=== PATIENT | male | born 1945 | race Caucasian/White ===

== ENCOUNTER 2019-12-11 15:04 | Inpatient (IN) | payer MEDICARE, OTHER ==
[~2019-12-11] VITALS: Ht 162.6 cm; Wt 67.1 kg
[2019-12-11] MEDS ORDERED: CHOL100045 PO (15:18)
[2019-12-11] MEDS ORDERED: BISA10SU11 RC (15:18)
[2019-12-11] MEDS ORDERED: ASCO-352 PO (15:18)
[2019-12-11] MEDS ORDERED: ACET-868 PO (15:18)
[2019-12-11] MEDS ORDERED: BUSP10TA3 PO (15:18)
[2019-12-11] MEDS ORDERED: ZOLP5TAB2 PO (15:18)
[2019-12-11] MEDS ORDERED: CALC500T13 PO (15:18)
[2019-12-11] MEDS ORDERED: LORA-259 PO (15:18)
[2019-12-11] MEDS ORDERED: NA P133E RC (15:18)
[2019-12-11] MEDS ORDERED: DOCU-141 PO (15:18)
[2019-12-11] MEDS ORDERED: ZINC220C6 PO (15:18)
[2019-12-11] MEDS ORDERED: SENN-261 PO (15:18)
[2019-12-11] MEDS ORDERED: ESCI10TA PO (15:18)
[2019-12-11] MEDS ORDERED: OMEG-88 PO (15:18)
[2019-12-11] MEDS ORDERED: QUERCETIN PO (15:19)
--- NOTE | 2019-12-11 15:47 | NUR ---
DONN ACEVEDO AT BEDSIDE FOR EKG
--- NOTE | 2019-12-11 15:50 | NUR ---
URINE SAMPLE COLLECTED AND SENT TO LAB
--- NOTE | 2019-12-11 15:54 | NUR ---
RAPID COVID SWAB DONE AND SENT TO LAB
--- NOTE | 2019-12-11 16:00 | NUR ---
HERBERTH HULL [phone]
[2019-12-11 16:16] LABS: BASOPHILS # (AUTO) 0.1 /CMM (0.0-0.2); BASOPHILS % (AUTO) 0.9 % (0.0-2.0); EOSINOPHILS % (AUTO) 0.3 % (0.0-6.0); HEMATOCRIT 44 % (39-51); HEMOGLOBIN 15.1 g/dL (13.5-17.5); LYMPHOCYTES # (AUTO) 1.7 /CMM (0.8-4.8); LYMPHOCYTES % (AUTO) 20.7 % (20.0-44.0); MEAN CORPUSCULAR HGB CONC 34 g/dl (31.0-36.0); MEAN CORPUSCULAR VOLUME 102 fL (80-96); MONOCYTES # (AUTO) 0.5 /CMM (0.1-1.30); MONOCYTES % (AUTO) 6.4 % (2.0-12.0); NEUTROPHILS % (AUTO) 71.7 % (43.0-81.0); PLATELET COUNT (AUTO) 265 /CMM (150-450); RED BLOOD CELL COUNT(AUTO) 4.37 MIL/uL (4.5-6.0); WHITE BLOOD COUNT (AUTO) 8.4 K/uL (4.3-11.0)
[2019-12-11 16:29] LABS: CALCIUM, SERUM 8.4 mg/dL (8.5-10.1); CARBON DIOXIDE 24 mmol/L (21-32); CHLORIDE 105 mmol/L (98-107); CREATININE 1.2 mg/dL (0.6-1.3); GLUCOSE 109 mg/dL (74-106); POTASSIUM 3.7 mmol/L (3.5-5.1); SODIUM SERUM 141 mmol/L (136-145); UREA NITROGEN, BLOOD 15 mg/dL (7-18)
[2019-12-11 16:32] LABS: ALANINE AMINOTRANSFERASE 15 U/L (12-78); ALBUMIN 3.7 g/dL (3.4-5.0); ALCOHOL, BLOOD 6 mg/dL (0-0); ALKALINE PHOSPHATASE 99 U/L (46-116); ASPARTATE AMINOTRANSFERASE 21 U/L (15-37); BILIRUBIN,DIRECT 0.1 mg/dL (0.0-0.2); BILIRUBIN,TOTAL 0.4 mg/dL (0.2-1.0); SALICYLATE 0.5 mg/dL (2.8-20.0); TOTAL PROTEIN, SERUM 7.3 g/dL (6.4-8.2)
[2019-12-11 16:33] LABS: ACETAMINOPHEN < 10 ug/ml (10-30)
[2019-12-11 16:34] LABS: ALANINE AMINOTRANSFERASE 16 U/L (12-78); ALBUMIN 3.7 g/dL (3.4-5.0); ALKALINE PHOSPHATASE 98 U/L (46-116); ASPARTATE AMINOTRANSFERASE 20 U/L (15-37); BILIRUBIN,DIRECT 0.1 mg/dL (0.0-0.2); BILIRUBIN,TOTAL 0.5 mg/dL (0.2-1.0); TOTAL PROTEIN, SERUM 7.2 g/dL (6.4-8.2)
--- NOTE | 2019-12-11 16:41 | NUR ---
PUBLIC ADDRESS SYSTEM OPERATOR AT BEDSIDE FOR EVAL
--- NOTE | 2019-12-11 17:48 | NUR ---
REPORT GIVEN TO NAHUN WELLS OF [facility]
[2019-12-11] MEDS ORDERED: ACETAMINOPHEN 325 MG TABLET PO PRN ×2 (18:30→22:00)
[2019-12-11] MEDS ORDERED: BLOOD SUGAR DIAGNOSTIC 1 EACH STRIP IN ONE (18:30)
[2019-12-11] MEDS ORDERED: MAG HYDROX/AL HYDROX/SIMETH 30 ML UDC PO PRN (18:30)
[2019-12-11] MEDS ORDERED: MAGNESIUM HYDROXIDE 30 ML UDC PO PRN (18:30)
--- NOTE | 2019-12-11 18:57 | NUR ---
Pt. arrived in the via a wheelchair and wheeled by ER staff. V/S taken, contraband done and Dr. Fink made aware of the admission and gave orders. Will endorse to the incoming nurse for the completion of the admission.
[2019-12-11 19:13] VITALS: BP 138/82
[2019-12-11] MEDS: LORAZEPAM 0.5 MG TABLET PO PRN (19:50)
--- NOTE | 2019-12-11 19:51 | NUR ---
RN NOTES: ANXIETY/AGITATION PATIENT IS AGITATED,PACING IN HALLWAY ANXIOUS, PARANOID,RESTLESS, DISORGNIZED HYPERVERBAL AT THIS TIME, NOT FOLLOWING ANY REDIRECTIONS ,PRN ATIVAN 0.5 MG , PO GIVEN, WILL CONTINUE TO MONITOR.
--- NOTE | 2019-12-11 19:56 | NUR ---
ADMISSION NOTES: ADMITTED THIS 74Y/O MALE PATIENT ADMIT FROM [facility] / INTIALLY FROM [facility], ADMITTED TO [facility] ON 5150 HOLD, DANGER TO HIMSELF , DEPRESSION AND SUICIDAL IDEATION, PT. HAS POOR INSIGHT AND MINIMIZE HIS SELF DESTRUCTIVE BEHAVIOR ,PT. DRINK RUBBING ALCOHOL AT THE FACILITY, HE STATES HE CAN DRINK HAND SANTIZER. ,UPON FACE TO FACE ASSESSMENT PATIENT IS A&O X 2 ,3 ANXIOUS ,PARANOID , DISORGNIZED TALKATIVE ,DISHELVED ,EASILY GETS AGITATED, PACING IN HALLWAY DENIES SI /HI AT THIS TIME, PT. IS POOR HISTORIAN, POOR INSIGHT ,POOR JUDGEMENT , PT. REFUSED TO SIGNS ADMISSION CONSENT PAPERS , DUE TO MENTAL STATUS / DEPRESSED ,ANXIOUS, BOTH MD AWARE AND NOTIFIED OF THE ADMISSION, BELONGINGS CONTRABAND WERE DONE , NURSING ASSESSMENT DONE ,PT. RIGHTS DISCUSS BY MANAGER OF SUPPLY CHAIN , PROVIDE THE PT. WITH HANDBOOK, AND MEDICATIONS GUIDE, ENVIRONMENTAL SAFETY CHECK DONE, ENCOURAGED PT. VERBALIZED ANY FEELING CONCERN TO STAFF, ORIENT TO UNIT POLICY, NO ACUTE DISTRESS NOTED,VITAL SIGNS WNL ,DENIES ANY PAIN AT THIS TIME,WILL CONTINUE TO MONITOR FOR Q15 SAFETY AND BEHAVIOR.
[2019-12-11] MEDS ORDERED: ZOLPIDEM TARTRATE 5 MG TABLET PO PRN ×2 (20:00→22:00)
[2019-12-11 20:27] VITALS: BP 138/82
[2019-12-11 20:29] VITALS: BP 138/82
[2019-12-11] MEDS ORDERED: BISACODYL SUPP (10 MG) 10 MG/SUPP.RECT SUPP.RECT RC PRN (22:00)
[2019-12-11] MEDS ORDERED: CALCIUM CARBONATE 500 MG TAB.CHEW PO PRN (22:00)
--- NOTE | 2019-12-11 22:11 | NUR ---
RN NOTES : INSOMNIA PT. C/O UNABLE TO SLEEP AMBIEN 5 MG PO PRN GIVEN PER PT. REQUEST , WILL CONTINUE TO MONITOR.
[2019-12-11] MEDS: SENNOSIDES 8.6 MG TABLET PO SCH (22:40)
[2019-12-12] MEDS: LORAZEPAM 0.5 MG TABLET PO PRN ×2 (03:01→09:38)
--- NOTE | 2019-12-12 03:02 | NUR ---
RN NOTES: ANXIETY PT.C/O AGITATED,PACING IN HALLWAY ANXIOUS, PARANOID,RESTLESS, HYPERVERBAL AT THIS TIME, PRN ATIVAN 0.5 MG , PO GIVEN ,WILL CONTINUE TO MONITOR.
[2019-12-12 08:00] VITALS: BP 145/80
[2019-12-12] MEDS: ZINC SULFATE 220 MG CAPSULE PO SCH (08:51)
[2019-12-12] MEDS: ASCORBIC ACID 500 MG TABLET PO SCH (08:51)
[2019-12-12] MEDS: CHOLECALCIFEROL 1,000 UNIT TABLET (VIT D3) PO SCH (08:51)
[2019-12-12] MEDS: DOCUSATE SODIUM 100 MG CAPSULE PO SCH ×2 (08:52→16:34)
[2019-12-12 08:56] LABS: ALBUMIN 3.8 g/dL (3.4-5.0); BILIRUBIN,TOTAL 1.3 mg/dL (0.2-1.0); CALCIUM, SERUM 8.9 mg/dL (8.5-10.1); CREATININE 1.1 mg/dL (0.6-1.3); POTASSIUM 3.8 mmol/L (3.5-5.1); TOTAL PROTEIN, SERUM 7.3 g/dL (6.4-8.2)
[2019-12-12 08:59] LABS: CHOLESTEROL 184 mg/dL (<200); HDL CHOLESTEROL 83 mg/dL (40-60); LDL 92 mg/dL (0-99); TRIGLYCERIDES 124 mg/dL (30-150)
[2019-12-12] MEDS: busPIRone 5 MG TABLET PO SCH ×2 (12:18→16:34)
[2019-12-12 15:52] VITALS: BP 123/66
[2019-12-12 20:00] VITALS: BP 112/74
[2019-12-12] MEDS ORDERED: QUETIAPINE FUMARATE 25 MG TABLET PO SCH ×2 (20:00→22:00)
[2019-12-12] MEDS: SENNOSIDES 8.6 MG TABLET PO SCH (21:09)
--- NOTE | 2019-12-12 21:20 | NUR ---
RN NOTES: PT. C/O FEELING ANXIOUS , OFFERED ATIVAN 0.5MG PO PRN ,TOOK OUT FROM OMNICELL THEN PT. REFUSED TO TAKE ,PER TP. I AM OK ,ATIVAN 0.5 MG PO RETURN BACK IN OMNICELL , AND RETURN ATIVAN 0.5 MG WITNESS BY ANOTHER RN, WILL CONTINUE WITH CARE.
--- NOTE | 2019-12-12 21:37 | NUR ---
RN NOTES: PT. C/O FEELING ANXIOUS , OFFERED ATIVAN 0.5MG PO PRN ,TOOK OUT FROM OMNICELL THEN PT. REFUSED TO TAKE ,PER PT. I AM OK ,ATIVAN 0.5 MG PO RETURN BACK IN OMNICELL , AND RETURN ATIVAN 0.5 MG WITNESS BY ANOTHER RN, WILL CONTINUE WITH CARE.
[2019-12-13 08:00] VITALS: BP 128/84
[2019-12-13] MEDS: ZINC SULFATE 220 MG CAPSULE PO SCH (09:31)
[2019-12-13] MEDS: ASCORBIC ACID 500 MG TABLET PO SCH (09:32)
[2019-12-13] MEDS: CHOLECALCIFEROL 1,000 UNIT TABLET (VIT D3) PO SCH (09:32)
[2019-12-13] MEDS: DOCUSATE SODIUM 100 MG CAPSULE PO SCH ×2 (09:32→16:55)
[2019-12-13] MEDS: busPIRone 5 MG TABLET PO SCH ×3 (09:32→17:20)
--- NOTE | 2019-12-13 11:02 | NUR ---
[facility] RN OPENING NOTES RECEIVED PT. SITTING UP IN HIS BED AT THIS TIME, PARANOID AND EASILY AGITATED, ENCOURAGED PT TO VERBALIZED ANY FEELING , PT ABLE TO MAKE NEEDS KNOWN. ALL NEEDS ATTENDED ANTICIPATED PER ORDER, MED COMPLIANT. PT DENIES SI HI AH VH AT THIS TIME. SAFETY MAINTAIN AT ALL TIMES. BED IN LOWEST LOCKED POSITION, SIDE RAILS UPX2, CALL LIGHT WITHIN REACH. WILL CONTINUE TO MONITOR Q15M, PRN AND PER PROTOCOL FOR SAFETY AND BEHAVIOR.
--- NOTE | 2019-12-13 12:01 | NUR ---
FACILITY CONTACT: ABISAI contacted Robyn, campus coordinator at [facility] Address: [address], [place] [address] who stated pt is able to return once stable for discharge. Per Robyn, she reported that pt has been really depressed due to no longer wanting to live at the SNF. She stated that ex- called her Friday to inform her pt had expressed suicidal ideation with a plan to drink a bottle of rubbing alcohol. Per Robyn, when she went to go check on pt she saw that pt had stolen a bottle of hand vertical roll operator and endorsed wanting to kill himself. Per Robyn, she stated that she will be contacting pts ex- Gino to discuss pts financial resources for possible Board and Care placement.
--- NOTE | 2019-12-13 12:13 | NUR ---
FAMILY CONTACT: ABISAI contacted pts ex- Gino ([phone]) for collateral information, treatment and discharge planning. ABISAI left a voicemail for callback.
[2019-12-13] MEDS: QUETIAPINE FUMARATE 25 MG TABLET PO SCH ×3 (12:39→20:22)
[2019-12-13] MEDS: FLUOXETINE HCL 20 MG CAPSULE PO SCH (12:40)
--- NOTE | 2019-12-13 12:57 | NUR ---
FAMILY CONTACT: SW receives pts ex- Gino ([phone]) who provided SW with collateral information and discussed pts discharge/treatment plan. Per ex- she states that pt is not suitable for a SNF as pt is independent and states that pts depression is triggered by living in a SNF and feeling he is "locked in." She wishes for pt to be placed at an independent living and states that pt is able to afford about $1200/month. SW stated that she will try and place pt an independent living instead of a SNF. also requested to speak to MD regarding pts treatment.
--- NOTE | 2019-12-13 14:00 | NUR ---
SUBSTANCE ABUSE INTERVENTION: SW provided substance abuse intervention to pt. Pt in denial and has no motivation to change behavior.
--- NOTE | 2019-12-13 14:18 | NUR ---
INITIAL DISCHARGE PLAN: Pt is able to return to [facility] Address: [address], [place] [address] . However, per ex- Gino [phone] she wishes for pt to be placed at an independent living. SW will help form a safe and proper discharge in collaboration with .
[2019-12-13 16:00] VITALS: BP 126/70
--- NOTE | 2019-12-13 19:03 | NUR ---
[facility] RN CLOSING NOTES PT RESTING IN BED AT THIS TIME. PT REMAINED STABLE THROUGHOUT SHIFT. ALL CARE, NEEDS, TREATMENT AND MEDICATIONS ADMINISTERED ANTICIPATED PER ORDER. PT KEPT CLEAN AND DRY.SAFETY MAINTAIN AT ALL TIMES. BED IN LOWEST LOCKED POSITION, SIDE RAILS UPX2, CALL LIGHT WITHIN REACH. WILL CONTINUE TO MONITOR Q15M, PRN AND PER PROTOCOL FOR SAFETY AND BEHAVIOR Addendum: 12/13/19 at 1907 by ARNE DILLON RN [facility] RN CLOSING NOTES PT RESTING IN BED AT THIS TIME. PT REMAINED STABLE THROUGHOUT SHIFT. ALL CARE, NEEDS, TREATMENT AND MEDICATIONS ADMINISTERED ANTICIPATED PER ORDER. PT KEPT CLEAN AND DRY.SAFETY MAINTAIN AT ALL TIMES. BED IN LOWEST LOCKED POSITION, SIDE RAILS UPX2, CALL LIGHT WITHIN REACH. WILL ENDORSE TO ORACLE ANALYST NURSE FOR STEVEN
[2019-12-13 19:36] VITALS: BP 107/73
[2019-12-13] MEDS: LORAZEPAM 0.5 MG TABLET PO PRN (21:17)
[2019-12-13] MEDS: SENNOSIDES 8.6 MG TABLET PO SCH (21:17)
--- NOTE | 2019-12-14 06:24 | NUR ---
[facility] RN CLOSING NOTES PT LAYING ON BED SLEEPING. ALL CARE, NEEDS, TREATMENT AND MEDICATIONS ADMINISTERED ANTICIPATED PER ORDER. PT HAD PRN MED ATIVAN 0.5MG 1 TAB AT 2116 FOR ANXIETY. PATIENT SLEPT FOR ABOUT 2 HR. SAFETY PRECAUTION TAKEN. BED IN LOWEST LOCKED POSITION, SIDE RAILS UPX2, CALL LIGHT WITHIN REACH. WILL CONTINUE TO MONITOR [id number] AND Q1HR PER [facility] PROTOCOL FOR SAFETY, MOOD AND BEHAVIOR AND ENDORSING TO AM NURSE.
[2019-12-14 08:00] VITALS: BP 137/73
[2019-12-14] MEDS: ZINC SULFATE 220 MG CAPSULE PO SCH (08:30)
[2019-12-14] MEDS: ASCORBIC ACID 500 MG TABLET PO SCH (08:30)
[2019-12-14] MEDS: DOCUSATE SODIUM 100 MG CAPSULE PO SCH ×2 (08:30→16:59)
[2019-12-14] MEDS: CHOLECALCIFEROL 1,000 UNIT TABLET (VIT D3) PO SCH (08:30)
[2019-12-14] MEDS: QUETIAPINE FUMARATE 25 MG TABLET PO SCH ×4 (08:31→19:27)
[2019-12-14] MEDS: busPIRone 5 MG TABLET PO SCH ×3 (08:31→16:59)
[2019-12-14] MEDS: FLUOXETINE HCL 20 MG CAPSULE PO SCH (12:43)
[2019-12-14 16:00] VITALS: BP 121/70
--- NOTE | 2019-12-14 18:26 | NUR ---
RN Closing note Patient sitting on bed, took all scheduled medications with compliance. Skin is warm ot touch, respiratory even and uncolored on room air, no distress observed. Kept bed in locked, side rails up x 2, will endorse entry level java developer and continue to monitor for safety. Addendum: 12/14/19 at 1836 by SHAYY GARLAND RN error
--- NOTE | 2019-12-14 18:36 | NUR ---
RN Closing note Patient sitting on bed, torres no appears anxiety or restlessness. Pt took all scheduled medications with compliance during day shift. Skin is warm to touch, respiratory even and uncolored on room air, no distress observed. Kept bed in locked, side rails up x 2, will endorse acid conditioner and continue to monitor for safety.
[2019-12-14 20:00] VITALS: BP 120/72
[2019-12-14] MEDS: SENNOSIDES 8.6 MG TABLET PO SCH (22:00)
--- NOTE | 2019-12-15 06:24 | NUR ---
[facility] RN CLOSING NOTES: PT AWAKE, A/O X3. SEEN IN UNIT INTERACTING WITH STAFF AND PEERS. NO BEHAVIORAL ISSUES THIS SHIFT. ALL CARE NEEDS, TREATMENT AND MEDICATIONS ADMINISTERED ANTICIPATED PER ORDER. PT IS MED COMPLIANT, HAD NO PRN'S THIS SHIFT. SAFETY PRECAUTION TAKEN. BED IN LOWEST LOCKED POSITION, SIDE RAILS UPX2, CALL LIGHT WITHIN REACH. WILL CONTINUE TO MONITOR [id number] AND Q1HR PER [facility] PROTOCOL FOR SAFETY, MOOD AND BEHAVIOR AND ENDORSE TO AM SHIFT.
[2019-12-15 08:00] VITALS: BP 146/79
[2019-12-15] MEDS: ASCORBIC ACID 500 MG TABLET PO SCH (08:48)
[2019-12-15] MEDS: busPIRone 5 MG TABLET PO SCH ×3 (08:48→16:11)
[2019-12-15] MEDS: CHOLECALCIFEROL 1,000 UNIT TABLET (VIT D3) PO SCH (08:49)
[2019-12-15] MEDS: QUETIAPINE FUMARATE 25 MG TABLET PO SCH ×4 (08:49→20:37)
[2019-12-15] MEDS: DOCUSATE SODIUM 100 MG CAPSULE PO SCH ×2 (08:51→16:11)
[2019-12-15] MEDS: ZINC SULFATE 220 MG CAPSULE PO SCH (08:58)
[2019-12-15] MEDS: FLUOXETINE HCL 20 MG CAPSULE PO SCH (12:31)
--- NOTE | 2019-12-15 15:17 | NUR ---
FACILITY CONTACT: ABISAI contacted Robyn, hospital admissions clerk at [facility] Address: [address] , [place] [address] to inform her pt will be discharged on Friday12/17/19. Robyn agreed with discharge plan.
--- NOTE | 2019-12-15 15:18 | NUR ---
FAMILY CONTACT: ABISAI contacted pts ex- Gino ([phone]) and left a voicemail informing her pt will be discharged on Friday12/17/19.
[2019-12-15 16:00] VITALS: BP 102/77
--- NOTE | 2019-12-15 17:08 | NUR ---
RN-CO: PER PT HE EATS DINNER ROLL ALL THE TIME.
[2019-12-15 19:54] VITALS: BP 128/85
[2019-12-15 20:00] VITALS: BP 128/85
[2019-12-15] MEDS: SENNOSIDES 8.6 MG TABLET PO SCH (22:00)
--- NOTE | 2019-12-16 06:40 | NUR ---
[facility] RN NOTE PATIENT SLEPT WELL AT NIGHT AFTER TAKING HIS 2000 MEDICINES. NO BEHAVIOR EPISODES NOTED AT NIGHT, REDIRECTABLE. NO ACUTE CHANGES NOTED.
[2019-12-16 08:00] VITALS: BP 111/74
[2019-12-16] MEDS: CHOLECALCIFEROL 1,000 UNIT TABLET (VIT D3) PO SCH (08:45)
[2019-12-16] MEDS: ASCORBIC ACID 500 MG TABLET PO SCH (08:45)
[2019-12-16] MEDS: DOCUSATE SODIUM 100 MG CAPSULE PO SCH ×2 (08:45→16:25)
[2019-12-16] MEDS: ZINC SULFATE 220 MG CAPSULE PO SCH (08:45)
[2019-12-16] MEDS: busPIRone 5 MG TABLET PO SCH ×3 (08:45→16:24)
[2019-12-16] MEDS: QUETIAPINE FUMARATE 25 MG TABLET PO SCH ×4 (08:46→20:03)
[2019-12-16] MEDS: FLUOXETINE HCL 20 MG CAPSULE PO SCH (12:06)
--- NOTE | 2019-12-16 13:46 | NUR ---
FACILITY CONTACT: ABISAI faxed clinicals and COVID results to Robyn emergency management coordinator at [facility] Address: [address] , [place] [address] .
[2019-12-16 16:00] VITALS: BP 129/75
[2019-12-16 19:32] VITALS: BP 112/77
[2019-12-16] MEDS: SENNOSIDES 8.6 MG TABLET PO SCH (21:44)
[2019-12-16] MEDS: LORAZEPAM 0.5 MG TABLET PO PRN (21:51)
--- NOTE | 2019-12-16 21:54 | NUR ---
[facility] RN NOTES: PATIENT IS COMPLAINING OF BEING ANXIOUS AND THAT THE MEDICATION SEROQUEL IS NOT HELPING HIM TO SLEEP AT ALL. HE REQUESTED FOR ATIVAN MEDICATION. ATIVAN 0.5 MG GIVEN ORALLY PRN ORDER. WILL MONITOR PATIENT AND EFFICACY OF MEDICATION.
[2019-12-17 08:00] VITALS: BP 135/79
[2019-12-17] MEDS: busPIRone 5 MG TABLET PO SCH ×2 (08:51→12:12)
[2019-12-17] MEDS: QUETIAPINE FUMARATE 25 MG TABLET PO SCH ×2 (08:51→12:15)
[2019-12-17] MEDS: ASCORBIC ACID 500 MG TABLET PO SCH (08:51)
[2019-12-17] MEDS: CHOLECALCIFEROL 1,000 UNIT TABLET (VIT D3) PO SCH (08:51)
[2019-12-17] MEDS: ZINC SULFATE 220 MG CAPSULE PO SCH (08:51)
[2019-12-17] MEDS: DOCUSATE SODIUM 100 MG CAPSULE PO SCH (08:54)
--- NOTE | 2019-12-17 09:39 | NUR ---
Dr. Fink gave an order to D/C Hold and D/C to [facility] and to follow up with, Psychiatrist Dr. Franny Fink at [address], [place] [address] with the tel# of [phone] and to follow up with the, shipping & receiving lead Dr. Zapata at [address] [facility] [address], with the tel# of [phone]. Psychiatrist ordered to continue same meds including prn.
[2019-12-17] MEDS: FLUOXETINE HCL 20 MG CAPSULE PO SCH (12:12)
--- NOTE | 2019-12-17 12:49 | NUR ---
Discharge Note: Pt was discharged to [facility] ([facility]) located at [address] [place] [address]; . Pt was transported via [facility] at 12:30PM. Pts ex , Gino ([phone]), was notified and made aware of this discharge. Upon discharge, the pt appeared to be in an anxious mood and presented with an irritated affect. Pt denied both suicidal and homicidal ideation as well as auditory and visual hallucinations. Pt will be in the care of his psychiatrist, Dr. Fink located at [address] [address], [place] [address]; and his supervisor composing room, Dr. Zapata, located at [address] [place] [address]; . The multidisciplinary exit care form was done, printed, signed, and given to the patient.
--- NOTE | 2019-12-17 13:00 | NUR ---
[facility]/RN-NOTES. PATIENT HAD A DISCHARGE ORDER FROM DR. SHAFFER. HIGH SCHOOL DIRECTOR AIDA MADE AWARE WITH ORDERS. REPORT GIVEN TO AMY ( PROJECT ENG). PATIENT DID NOT VERBALIZE SI/HI,DENIES VISUAL/AUDITORY HALLUCINATIONS DURING DISCHARGE. PATIENT WAS HEAVY EQUIPMENT DIESEL MECHANIC BY AMBULANCE VIA GURNEY WITH TWO STAFF ASSIST. PATIENT LEFT THE UNIT IN STABLE CONDITION ALERT ORIENTED X3,AMBULATORY STEADY GAIT. ALL BELONGINGS WAS GIVEN BACK TO THE PATIENT INCLUDING X1 BLACK CELLPHONE WITH BOTTOM STAINER, X1 WATCH AND OTHER BELONGINGS. PER NOTES PATIENT'S EX - STEVIE MADE AWARE OF THE DISCHARGE.
== END 2019-12-17 13:00 | DRG 885 ==
LOC: ER 15:10 → GPS 18:03
PROVIDERS: ADMIT Psychiatry & Neurology Psychosomatic Medicine; ATTEND Nurse Practitioner Acute Care
DX: F33.2 Major depressive disorder, recurrent severe without psychotic features (principal); F01.50 Vascular dementia, unspecified severity, without behavioral disturbance, psychotic disturbance, mood disturbance, and anxiety; F41.9 Anxiety disorder, unspecified; G47.00 Insomnia, unspecified; M19.90 Unspecified osteoarthritis, unspecified site; Z91.5 Personal history of self-harm; F29 Unspecified psychosis not due to a substance or known physiological condition; F19.90 Other psychoactive substance use, unspecified, uncomplicated; Z79.899 Other long term (current) drug therapy; F10.21 Alcohol dependence, in remission
CPT/HCPCS: 36415; 71045-TC; 80048-TC; 80053-TC; 80061-TC; 80076-TC; 84484-TC; 85025-TC; 85730-TC; 86850-TC; 87081-TC; G0480